=== PATIENT | male | born 1955 | race Caucasian/White ===

== ENCOUNTER 2018-03-31 12:33 | Day surgery (SDC) | payer OTHER ==
[2018-03-31] MEDS ORDERED: PROPOFOL 20 ML ONE (12:45)
[2018-03-31 12:58] VITALS: BMI 31.1
[2018-03-31 13:53] VITALS: TEMP 97.8
[2018-03-31 14:40] VITALS: PULSE 64
[2018-03-31 14:47] VITALS: BP 136/71
--- NOTE | 2018-04-03 17:36 | PATH ---
Surgical Pathology Report Patient Name: MANISHA JJ [facility]. Rec. #: [id number] /Age/Gender: 1955 (Age: 63) / M Account: [id number] Location: U-ENDOSCOPY Taken: 03/31/2018 Received: 04/02/2018 Reported: 04/03/2018 Physicians: Smith Anderson D.O. Specimen(s) Received A: POLYP SIGMOID B: BX POLYP APPENDICEAL ORIFICE C: BX DESCENDING COLON POLYP D: RECTAL POLYP Clinical History Screening colonoscopy Postoperative diagnosis: Colon polyps, diverticulosis Final Diagnosis A. SIGMOID POLYP, POLYPECTOMY: HYPERPLASTIC POLYP. B. APPENDICEAL ORIFICE POLYP, BIOPSY: TUBULAR ADENOMA. C. DESCENDING COLON POLYP, BIOPSY: POLYPOID COLONIC MUCOSA WITH FOCAL SURFACE HYPERPLASTIC CHANGE. D. RECTAL POLYP, POLYPECTOMY: HYPERPLASTIC POLYP. Electronically Signed Joycelyn Davis M.D. Gross Description A. Received in formalin, labeled "sigmoid colon polyp biopsy" are 2 klein, irregular portions of soft tissue measuring 0.2 and 0.4 cm. in greatest dimension. The specimens are submitted in toto in one cassette. B. Received in formalin, labeled "biopsy polyp appendiceal orifice" are 2 klein, irregular portions of soft tissue measuring 0.2 and 0.5 cm. in greatest dimension. The specimens are submitted in toto in one cassette. C. Received in formalin, labeled "biopsy descending colon polyp" is a klein, irregular portion of soft tissue measuring 0.4 cm. in greatest dimension. The specimen is submitted in toto in one cassette. D. Received in formalin, labeled "rectal polyp biopsy" are 2 klein, irregular portions of soft tissue averaging 0.4 cm. in greatest dimension. The specimens are submitted in toto in one cassette. DL04/02/2018 saudi04/02/2018
== END 2018-03-31 15:01 | disposition home or self-care (01) ==
LOC: JASU-ENDO 12:33
PROVIDERS: ATTEND Internal Medicine Gastroenterology
PROC: 0DBN8ZX Excision of Sigmoid Colon, Via Natural or Artificial Opening Endoscopic, Diagnostic (ICD-10-PCS; 2018-03-31)
PROC: 0DBP8ZX Excision of Rectum, Via Natural or Artificial Opening Endoscopic, Diagnostic (ICD-10-PCS; 2018-03-31)
PROC: 0DBH8ZX Excision of Cecum, Via Natural or Artificial Opening Endoscopic, Diagnostic (ICD-10-PCS; principal; 2018-03-31 11:30)
DX: Z12.11 Encounter for screening for malignant neoplasm of colon (principal); K57.30 Diverticulosis of large intestine without perforation or abscess without bleeding; K62.1 Rectal polyp; D12.0 Benign neoplasm of cecum; D12.5 Benign neoplasm of sigmoid colon
CPT/HCPCS: 88305-TC

== ENCOUNTER 2024-03-26 20:55 | Emergency (ER) | payer OTHER ==
[2024-03-26 20:59] VITALS: BMI 27.4
[2024-03-26 22:11] LABS: BASO % 0.7 % (0-2.0); EOS % 1.5 % (0-4.5); HEMOGLOBIN 8.7 GM/dL (11.7-16.9); LYMPH % 29.8 % (8-40); MCH 33.3 pg (25.7-33.7); MCHC 33.6 g/dl (32.0-35.9); MEAN CELL VOLUME 98.9 fl (80-96); MEAN PLT VOLUME 7.6 fl (7.5-11.1); MONO % 12.5 % (3.8-10.2); NEUT % 55.5 % (42.8-82.8); PLATELET COUNT 255 10^3/uL (134-434); RBC 2.63 M/mm3 (4.00-5.60); RDW 13.3 % (11.9-15.9); WHITE BLOOD COUNT 6.5 K/mm3 (4.0-10.0)
[2024-03-26 22:17] LABS: EPI CELLS 2 /uL (0-25.1); HYALINE CASTS 3 /uL (0-3.1); PH,URINE 5.5 (5.0-8.0); URINE APPEARANCE CLOUDY; URINE BACTERIA 730 /uL (0-1359); URINE BILIRUBIN NEGATIVE (NEGATIVE); URINE COLOR YELLOW; URINE GLUCOSE (UA) NEGATIVE (NEGATIVE); URINE KETONE TRACE (NEGATIVE); URINE LEUK ESTERASE 1+ (NEGATIVE); URINE NITRITE NEGATIVE (NEGATIVE); URINE PROTEIN 2+ (NEGATIVE); URINE RBC 1504 /uL (0-23.9); URINE WBC 529 /uL (0-25.8)
[2024-03-26 22:18] LABS: INR 1.01 (0.83-1.09); PROTHROMBIN TIME (PATIENT) 11.4 SEC (9.7-13.0)
[2024-03-26 22:21] LABS: ACTIVATED PTT 28.2 SECONDS (25.2-36.5)
[2024-03-26 22:30] LABS: POTASSIUM 4.1 mmol/L (3.5-5.1)
[2024-03-26 22:33] LABS: ALBUMIN 3.2 g/dl (3.4-5.0); BLOOD UREA NITROGEN 13.3 mg/dL (7-18); CALCIUM 8.3 mg/dL (8.5-10.1)
[2024-03-26 22:36] LABS: CREATININE 0.7 mg/dL (0.55-1.3)
[2024-03-26 22:38] LABS: BILIRUBIN,TOTAL 0.6 mg/dL (0.2-1); TOT PROT 6.2 g/dl (6.4-8.2)
[2024-03-26 23:38] LABS: URINE CRYSTALS CA OXALATE /hpf
[2024-03-26] MEDS: PIPERACILLIN/TAZOB 4.5 GM 4.5 GM in DEXTROSE 5%-WATER 100 ML IVPB ONE (23:58)
[2024-03-27 00:35] VITALS: BP 141/67
[2024-03-27 00:47] VITALS: PULSE 72; RESP 18; TEMP 98.2
== END 2024-03-27 00:58 | disposition short-term general hospital (02) ==
LOC: JER 20:55
DX: N48.89 Other specified disorders of penis (principal); R10.30 Lower abdominal pain, unspecified; N39.0 Urinary tract infection, site not specified; Z20.822 Contact with and (suspected) exposure to COVID-19
CPT/HCPCS: 0241U-QW; 36415; 74177-TC; 80053; 81003; 83605; 85025; 85610; 85730; 87086; 87186; 99285-25; Q9967